=== PATIENT | female | born 1940 | race Asian ===

== ENCOUNTER 2017-02-27 13:24 | Outpatient (CLI) | payer OTHER ==
[~2017-02-27 13:24] MED LIST: ASPI81EC98 PO; ATOR10TA PO; GLYB2.5T1 PO; HYDR-2962 PO; ISOS10TA9 PO; METF500T PO; METO-50 PO; ORE25 PO
== END 2017-02-27 20:03 | disposition home or self-care (01) ==
LOC: MRD 13:24
PROVIDERS: ATTEND Family Medicine
DX: M19.012 Primary osteoarthritis, left shoulder (principal)
CPT/HCPCS: 73030

== ENCOUNTER 2020-08-10 13:50 | Emergency (ER) | payer OTHER ==
[~2020-08-10] VITALS: Ht 152.4 cm; Wt 55.3 kg
[~2020-08-10 13:50] MED LIST changes: +HYDR-2726 PO; -HYDR-2962 PO; +METO-251 PO; -METO-50 PO
--- NOTE | 2020-08-10 13:56 | NUR ---
Patient ambulated to bed 2. RN evaluating the patient at bedside.
[2020-08-10 14:06] VITALS: BP 150/73
--- NOTE | 2020-08-10 14:46 | NUR ---
79YO F C/O SOB X 1 DAY. PER PT'S DAUGHTER, PT HAD COUGH 1 MONTH AGO AND HAD CXR DONE WHICH REVEALED PATCHY INFILTRATES. DENIES COUGH AT PRESENT. PT TESTED NEGATIVE FOR COVID LAST WEEK. IN ED, VSS. PT NOT IN DISTRESS. CLEAR BREATH SOUNDS. PT RESTING IN BED COMFORTABLY. ERMD MADE AWARE. PMH: HTN, DM MEDS: AMLODIPINE, METROPOLOL, METFORMIN
[2020-08-10 15:11] LABS: BASOPHILS % (AUTO) 0.7 % (0.0-2.0); EOSINOPHILS # (AUTO) 0.1 K/uL (0-0.4); EOSINOPHILS % (AUTO) 1.4 % (0.0-4.0); HEMATOCRIT 38.4 % (36-48); HEMOGLOBIN 12.8 g/dL (12.0-16.0); LYMPHOCYTES # (AUTO) 1.4 K/uL (2.5-16.5); LYMPHOCYTES % (AUTO) 29.1 % (20.5-51.1); MEAN CORPUSCULAR HEMOGLOBIN 29 pg (27-31); MEAN CORPUSCULAR HGB CONC 33 g/dL (33-37); MEAN CORPUSCULAR VOLUME 87.4 fL (80-94); MONOCYTES # (AUTO) 0.3 K/uL (0.8-1.0); MONOCYTES % (AUTO) 6.9 % (1.7-9.3); NEUTROPHILS # (AUTO) 3.1 K/uL (1.8-7.7); NEUTROPHILS % (AUTO) 61.9 % (42.2-75.2); PLATELET COUNT (AUTO) 195 K/uL (140-450); RED BLOOD CELL COUNT(AUTO) 4.39 MIL/uL (4.20-5.40); RED CELL DISTRIBUTION WIDTH 13.4 % (11.6-13.7)
[2020-08-10 15:32] LABS: ALBUMIN 4.3 g/dL (3.4-5.0); ANION GAP 14.3 (8-16); ASPARTATE AMINOTRANSFERASE 17 U/L (15-37); CARBON DIOXIDE 27.7 mmol/L (21-32); CHLORIDE 99 mmol/L (98-107); CREATININE 0.9 mg/dL (0.6-1.3); GLUCOSE 292 mg/dL (74-106); SODIUM SERUM 137 mmol/L (136-145); TOTAL BILIRUBIN 0.5 mg/dL (0.0-1.0); UREA NITROGEN, BLOOD 13 mg/dL (7-18)
[2020-08-10 17:08] VITALS: BP 150/73
== END 2020-08-10 17:08 | disposition home or self-care (01) ==
LOC: MED 13:50
DX: F41.9 Anxiety disorder, unspecified (principal); R07.9 Chest pain, unspecified; E11.9 Type 2 diabetes mellitus without complications; I10 Essential (primary) hypertension; Z85.9 Personal history of malignant neoplasm, unspecified; Z88.1 Allergy status to other antibiotic agents; Z88.2 Allergy status to sulfonamides; Z79.899 Other long term (current) drug therapy
CPT/HCPCS: 36415; 71045; 80053; 83880; 84484; 85025; 93005; 99285